=== PATIENT | male | born 2005 | race Caucasian/White ===

== ENCOUNTER 2025-02-20 02:29 | Emergency (ER) | payer OTHER ==
[2025-02-20] MEDS ORDERED: Dexamethasone 10 MG/ML VIAL ONE (03:07)
== END 2025-02-20 03:00 | disposition home or self-care (01) ==
LOC: CSHERS 02:29
DX: J01.90 Acute sinusitis, unspecified (principal)
CPT/HCPCS: 96372; 99283; J1100